=== PATIENT | female | born 1995 | race Caucasian/White ===

== ENCOUNTER 2025-05-17 09:26 | Outpatient (CLI) | payer BC, SELFPAY ==
[2025-05-17 17:12] LABS: GC DNA Amplified* NOT DETECTED (No Detected)
[2025-05-17 17:59] LABS: Chlamydia DNA Amplified* DETECTED (No Detected)
== END 2025-05-17 09:27 | disposition home or self-care (01) ==
LOC: NFLDUCREF 09:26
PROVIDERS: Visit Provider Physician Assistant Surgical
DX: Z11.3 Encounter for screening for infections with a predominantly sexual mode of transmission (principal)
CPT/HCPCS: 87491; 87591